=== PATIENT | male | born 1975 | race Caucasian/White ===

== ENCOUNTER 2023-12-11 12:13 | Outpatient (CLI) | payer OTHER, SELFPAY ==
--- NOTE | ~2023-12-11 | XR_ITS ---
VIEWS LUMBAR SPINE Ordering provider: Tyler Robles MD History: . RADICULOPATHY CERVICAL, LUMBAR, THORACIC . Comparison: None. FINDINGS: VERTEBRAL BODIES: No visible fracture or subluxation. DISK SPACES: Normal. SOFT TISSUES: Atherosclerotic changes of the aorta. IMPRESSION: No acute osseous abnormality lumbar spine. Reviewed, dictated and finalized at location A.
--- NOTE | ~2023-12-11 | XR_ITS ---
XR cervical spine 4-5V Ordering provider: Tyler Robles MD History: . RADICULOPATHY CERVICAL, LUMBAR, THORACIC . Comparison: None. FINDINGS: VERTEBRAL BODIES: Normal height and alignment. No visible fracture or subluxation. The dens is intact . DISK SPACES: Slight narrowing of the disc spaces C4-C5 and C5-C6. No definite intervertebral foraminal narrowing seen. PARASPINOUS SOFT TISSUES: No prevertebral soft tissue swelling. IMPRESSION: No acute osseous abnormality cervical spine. Mild narrowing of the disc spaces C4-C5 and C5-C6. Reviewed, dictated and finalized at location A.
--- NOTE | ~2023-12-11 | XR_ITS ---
3 VIEWS THORACIC SPINE Ordering provider: Tyler Robles MD History: . RADICULOPATHY CERVICAL, LUMBAR, THORACIC . Comparison: None. FINDINGS: VERTEBRAL BODIES: Loss of height is seen in the T11 and T12 vertebrae anteriorly which is most likely chronic. Mild degenerative changes of the spine. Otherwise,Normal height and alignment. No visible d efinite acute fracture or subluxation. DISK SPACES: Normal. SOFT TISSUES: Normal. IMPRESSION: No definite acute osseous abnormality of the thoracic spine. Multilevel loss of anterior height seen in the lower thoracic area most likely chronic. Reviewed, dictated and finalized at location A.
== END 2023-12-11 12:14 | disposition home or self-care (01) ==
PROVIDERS: PCP Family Medicine; Visit Provider Pain Medicine Interventional Pain Medicine
DX: M54.12 Radiculopathy, cervical region (principal); M54.14 Radiculopathy, thoracic region; M54.16 Radiculopathy, lumbar region
CPT/HCPCS: 72050; 72072; 72100